=== PATIENT | male | born 1975 | race Caucasian/White ===

== ENCOUNTER 2017-03-22 21:32 | Emergency (ER) | payer OTHER ==
[2017-03-22] MEDS ORDERED: LORazepam INJ* 2 MG/ML 1 ML VIAL IM ONE (21:43)
[2017-03-22] MEDS ORDERED: diPHENhydraMINE IV* 50 MG/ML 1 ml VIAL (BENADRYL) IM ONE (21:43)
[2017-03-22] MEDS ORDERED: Haloperidol INJ IV/IM* 5 MG/ML AMP IM ONE (21:43)
[2017-03-22] MEDS ORDERED: Haloperidol INJ IV/IM* 5 MG/ML AMP ONE (21:45)
[2017-03-22] MEDS ORDERED: LORazepam INJ* 2 MG/ML 1 ML VIAL ONE (21:45)
[2017-03-22] MEDS ORDERED: diPHENhydraMINE IV* 50 MG/ML 1 ml VIAL (BENADRYL) ONE (21:45)
[2017-03-22 22:23] LABS: Hematocrit 43 % (42-52); Hemoglobin 14.4 g/dl (14.0-18.0); Mean Corpuscular HGB Conc 34 g/dl (31-36); Mean Corpuscular Hemoglobin 35 pg (27-31); Mean Corpuscular Volume 104 fL (80-94); Mean Platelet Volume 8 um3 (7.4-10.4); Red Blood Count 4.09 10^6/ul (4.0-5.4); Red Cell Distribution Width 12 % (10.5-15)
[2017-03-22 22:42] LABS: ALT 34 U/L (7-52); AST 49 U/L (13-39); Albumin 4.6 g/dL (3.2-5.2); Alkaline Phosphatase 119 U/L (34-104); Anion Gap 10 mmol/L (2-11); BUN/Creatinine Ratio 10.9 (8-20); Blood Urea Nitrogen 7 mg/dL (6-24); CO2 Carbon Dioxide 21 mmol/L (22-32); Calcium 8.9 mg/dL (8.6-10.3); Chloride 109 mmol/L (101-111); EGFR African American 176.4 (>60); EGFR Non-African American 137.1 (>60); Globulin 2.8 g/dL (2-4); Glucose 95 mg/dL (70-100); Potassium 3.9 mmol/L (3.5-5.0); Sodium 140 mmol/L (133-145); Total Protein 7.4 g/dL (6.4-8.9)
[2017-03-22 22:47] LABS: Acetaminophen < 15 mcg/mL; Alcohol 309 mg/dL (<10); Salicylate < 2.50 mg/dL (<30)
--- NOTE | 2017-03-22 22:55 | ED ---
I, Oh,Soohyun, scribed for Johnny Eckert MD on 03/22/17 at 2150 . Psychiatric Complaint - HPI Summary HPI Summary: This 41 y/o male presents to ED as 941 under IPD. Positive LUE self-inflicted laceration. Recent stressor is identified "issues with and child". Pt admits to anxiety/depression and EtOH intoxication today. "I am not done drinking. I was gonna go home and drink some more". Pt is reported to have been uncooperative en route but not necessarily combative. Prior EMR indicates self cutting. - History Of Current Complaint Hx Obtained From: Patient, Medical Records Onset/Duration: Sudden Onset Timing: Constant Character: Depressed Aggravating Factor(s): Recent Stress - "Issues with and child" Alleviating Factor(s): Nothing Associated Signs And Symptoms: Positive: Negative Related History: Positive For: Prior Psychiatric Issues - Allergies/Home Medications Allergies/Adverse Reactions: Allergies Allergy/AdvReac Type Severity Reaction Status Date / Time No Known Allergies Allergy Verified 07/05/14 15:44 PMH/Surg Hx/FS Hx/Imm Hx Psychiatric History: Reports: Other Psychiatric Issues/Disorders - Self cutting Denies: Hx of Violent Episodes Against Others - Immunization History Date of Tetanus Vaccine: unknown - Family History Known Family History: Negative: Cardiac Disease, Diabetes - Social History Alcohol Use: Daily Alcohol Amount: drank 6 beers tonight Hx Substance Use: No Substance Use Type: Reports: None Hx Tobacco Use: Yes Smoking Status (MU): Heavy Every Day Tobacco Smoker Review of Systems Negative: Fever Positive: Anxious, Depressed, Other - EtOH intoxication All Other Systems Reviewed And Are Negative: Yes Physical Exam Triage Information Reviewed: Yes Vital Signs Reviewed: Yes Appearance: Positive: Well-Appearing, No Pain Distress Skin: Positive: Warm, Skin Color Reflects Adequate Perfusion Head/Face: Positive: Normal Head/Face Inspection Eyes: Positive: Normal ENT: Positive: Normal ENT inspection Neck: Positive: Supple, Nontender Respiratory/Lung Sounds: Positive: Breath Sounds Present Cardiovascular: Positive: RRR, Pulses are Symmetrical in both Upper and Lower Extremities Musculoskeletal: Positive: Normal Neurological: Positive: Normal Psychiatric: Positive: Other - EtOH on breath AVPU Assessment: Alert Diagnostics - Laboratory Lab Results: Lab Results 03/22/17 03/22/17 Range/Units 22:15 22:15 WBC 8.0 (3.5-10.8) 10^3/ul RBC 4.09 (4.0-5.4) 10^6/ul Hgb 14.4 (14.0-18.0) g/dl Hct 43 (42-52) % MCV 104 H (80-94) fL MCH 35 H (27-31) pg MCHC 34 (31-36) g/dl RDW 12 (10.5-15) % Plt Count 221 (150-450) 10^3/ul MPV 8 (7.4-10.4) um3 Neut % (Auto) 50.7 (38-83) % Lymph % (Auto) 36.5 (25-47) % [place] % (Auto) 9.6 H (1-9) % Eos % (Auto) 2.6 (0-6) % Baso % (Auto) 0.6 (0-2) % Absolute Neuts (auto) 4.1 (1.5-7.7) 10^3/ul Absolute Lymphs (auto) 2.9 (1.0-4.8) 10^3/ul Absolute Monos (auto) 0.8 (0-0.8) 10^3/ul Absolute Eos (auto) 0.2 (0-0.6) 10^3/ul Absolute Basos (auto) 0 (0-0.2) 10^3/ul Absolute Nucleated RBC 0 10^3/ul Nucleated RBC % 0 Sodium 140 (133-145) mmol/L Potassium 3.9 (3.5-5.0) mmol/L Chloride 109 (101-111) mmol/L Carbon Dioxide 21 L (22-32) mmol/L Anion Gap 10 (2-11) mmol/L BUN 7 (6-24) mg/dL Creatinine 0.64 L (0.67-1.17) mg/dL Est GFR ( Amer) 176.4 (>60) Est GFR (Non-Af Amer) 137.1 (>60) BUN/Creatinine Ratio 10.9 (8-20) Glucose 95 (70-100) mg/dL Calcium 8.9 (8.6-10.3) mg/dL Total Bilirubin 0.40 (0.2-1.0) mg/dL AST 49 H (13-39) U/L ALT 34 (7-52) U/L Alkaline Phosphatase 119 H (34-104) U/L Total Protein 7.4 (6.4-8.9) g/dL Albumin 4.6 (3.2-5.2) g/dL Globulin 2.8 (2-4) g/dL Albumin/Globulin Ratio 1.6 (1-3) TSH Pending Salicylates < 2.50 (<30) mg/dL Acetaminophen < 15 mcg/mL Serum Alcohol 309 H (<10) mg/dL Result Diagrams: 03/22/17 22:15 03/22/17 22:15 Lab Statement: Any lab studies that have been ordered have been reviewed, and results considered in the medical decision making process. Course/Dx - Course Course Of Treatment: Mr. Mcdonald got drunk tonight and made threatening statements. He is sleeping it off now and will be medically cleared about 0600. - Differential Dx/Clinical Impression Provider Diagnosis: Alcohol intoxication Discharge - Discharge Plan Condition: Stable Disposition: OTHER Discharge Disposition Comment: Change of Shift The documentation as recorded by the Jonathon josé Soohyun accurately reflects the service I personally performed and the decisions made by me, Johnny Eckert MD.
[2017-03-22 22:59] LABS: TSH (Thyroid Stimulating Horm) 1.84 mcIU/mL (0.34-5.60)
[2017-03-22 23:25] VITALS: BP 122/90
[2017-03-23] MEDS ORDERED: Haloperidol TAB* 5 MG PO ONE (07:52)
[2017-03-23] MEDS ORDERED: LORazepam TAB(*) 1 MG PO ONE (07:52)
[2017-03-23 08:26] LABS: Urine Bacteria Absent (Absent); Urine Bilirubin Negative (Negative); Urine Glucose Negative (Negative); Urine Nitrite Negative (Negative)
[2017-03-23 08:37] LABS: Benzodiazepine Urine Screen None Detected (None Detect)
== END 2017-03-23 09:15 ==
LOC: ED 21:32
DX: F10.129 Alcohol abuse with intoxication, unspecified (principal); Y90.8 Blood alcohol level of 240 mg/100 ml or more
CPT/HCPCS: 36415; 80053; 80307; 80320; 80329; 81003; 81015; 84443; 85025; 87086; 96372; 99285; G0480; J1200; J1630; J2060

== ENCOUNTER 2019-02-11 22:45 | Emergency (ER) | payer OTHER ==
[2019-02-11 22:51] VITALS: BP 119/84
== END 2019-02-12 00:20 | disposition left against medical advice (07) ==
LOC: ED 22:45
DX: Z53.21 Procedure and treatment not carried out due to patient leaving prior to being seen by health care provider (principal)
CPT/HCPCS: 99282

== ENCOUNTER 2019-04-23 19:05 | Emergency (ER) | payer OTHER ==
[2019-04-23] MEDS ORDERED: Ketorolac INJ* 30 MG/ML 1 ML VIAL IM ONE (19:27)
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
[2019-04-23] MEDS ORDERED: Lidocaine PATCH 5%* 1 PATCH TRANSDERM SCH (20:00)
[2019-04-23 20:13] VITALS: BP 109/79
== END 2019-04-23 20:11 | disposition home or self-care (01) ==
LOC: ED 19:05
DX: M54.9 Dorsalgia, unspecified (principal); M51.36 Other intervertebral disc degeneration, lumbar region; F17.200 Nicotine dependence, unspecified, uncomplicated
CPT/HCPCS: 72110; 96372; 99282; A9270-GY; J1885